=== PATIENT | male | born 1940 | race Caucasian/White ===

== ENCOUNTER 2018-01-28 11:01 | Observation (INO) ==
[2018-01-28 11:59] LABS: Basophils % 0.3 %; Hematocrit 25.4 % (37.5-50.1); Hemoglobin 7.8 g/dL (12.9-16.9); Immature Granulocytes % 1.5 % (0-4); Lymphocytes # 0.9 K/mcL (0.6-4.6); Lymphocytes % 8.6 %; Mean Corpuscular HGB Conc 30.7 g/dL (31.6-35.5); Mean Corpuscular Hemoglobin 23.1 pg (28.0-33.3); Mean Corpuscular Volume 75.4 fL (83.0-100.0); Mean Platelet Volume 11.6 fL (9.4-12.4); Monocytes # 0.8 K/mcL (0.0-1.3); Monocytes % 7.2 %; Neutrophils # 8.6 K/mcL (1.6-8.9); Platelet Count 249 K/mcL (140-400); Red Blood Count 3.37 M/mcL (4.19-5.50); Segmented Neutrophils % 82.4 %
[2018-01-28 12:19] LABS: Alanine Aminotransferase 13 Units/L (7-52); Albumin 4.7 g/dL (3.5-5.7); Albumin/Globulin Ratio 1.7 (1.1-2.2); Alkaline Phosphatase 54 Units/L (34-104); Aspartate Amino Transferase 11 Units/L (13-39); Bilirubin,Total 0.4 mg/dL (0.3-1.0); Blood Urea Nitrogen 18 mg/dL (8-23); Calcium 9.5 mg/dL (8.6-10.3); Carbon Dioxide 26 mEq/L (23-29); Chloride 98 mEq/L (98-107); Globulin 2.7 g/dL (2.4-3.5); Glucose 231 mg/dL (70-105); Osmolality,Calculated 285 (280-300); Potassium 3.6 mEq/L (3.5-5.1); Sodium 133 mEq/L (136-145); Total Protein 7.4 g/dL (6.4-8.9); Troponin I < 0.03 ng/mL (< 0.04)
[2018-01-28 12:59] LABS: Bilirubin,Urine Negative (Negative); Blood,Urine Negative (Negative); Clarity,Urine Clear (Clear); Color,Urine Yellow (Yellow); Glucose,Urine (UA) Normal (Normal); Ketones,Urine Negative (Negative); Leukocyte Esterase,Urine Negative (Negative); Nitrite,Urine Negative (Negative); PH,Urine 7.5 pH Units (5.0-8.0); Protein,Urine Negative (Neg-Trace); Specific Gravity,Urine 1.012 (1.010-1.025); Urobilinogen,Urine Normal (Normal)
[2018-01-28 13:12] LABS: % Iron Saturation 2 % (20-55); BUN/Creatinine Ratio 20 (6-26); Iron 11 mcg/dL (65-175); Transferrin 388 mg/dL (203-362); eGFR For Non-African Americans > 60 (> 60)
[2018-01-28] MEDS ORDERED: Naloxone 0.4 MG/ML INJ IVP PRN (15:04)
--- NOTE | 2018-01-28 15:19 | Internal Med History&Physical ---
Date of Encounter: 01/28/18 Time of Encounter: 15:15 Internal Medicine - H&P: HPI Chief complaint: Anemia Admitted From: Home Plans for Post Hospital Care: Home History of present illness: Mr. Cortes is a 77 year old male with a past medical history of recent anemia who was sent in from Dr. Miles's office today for further evaluation. Patient developed dark bloody stools several weeks ago and had a syncopal episode in the shower; patient was subsequently evaluated and had upper and lower endoscopy after hemoglobin found to be considerably lower than his baseline which appears to be around 13-15. Patient is on aspirin and xarelto for atrial fibrillation these were restarted after upper endoscopy and colonoscopy 2 weeks ago. Patient states that over the last week to 2 weeks he has not noticed any further dark stools or bloody stools. Patient has appointment with Dr. Miles today and hemoglobin found to still be low and was sent in for admission for push endoscopy. Patient denies any chest pain, shortness of breath, nausea, vomiting, diarrhea, abdominal pain. Patient denies any recent travel or sick contacts Past Med Surg Social Fam HX - Past Medical History Medical history: diabetes, glaucoma, hyperlipidemia, hypertension Additional medical history: Basal cell carcinoma, benign essential tumor, Microalbuminuria, squamous cell carcinoma Psychiatric history: no psych history - Past Surgical History Additional surgical history: Hand surgery, Eye trauma (plastic right eye), skin cancer removal - Social History Smoking Status: Never smoker Smokeless Tobacco Status: No Alcohol use: none Drug use: none Internal Medicine - H&P: Meds Amiloride/Hydrochlorothiazide [Amiloride HCl-Hctz 5-50 mg Tab] 1 tab PO DAILY [History] Aspirin [Lo-Dose Aspirin EC] 81 mg PO HS 01/28/18 [History] Bisacodyl [Dulcolax] 10 mg PO DAILY 01/28/18 [History] Glucosamn/Condroitn/C/Mn/[place] [Cvs Glucosamine Chondroitin Tb] 2 tab PO DAILY 01/28/18 [History] Lisinopril [Zestril] 40 mg PO DAILY 01/28/18 [History] Minoxidil [Minoxidil] 10 mg PO BID 01/28/18 [History] Nadide [Nicotinamide Adenine] 1 gm MC DAILY 01/28/18 [History] Rivaroxaban [Xarelto] 20 mg PO 1200 01/28/18 [History] Vit C/E/Zn/Coppr/Lutein/Zeaxan [Preservision Areds 2 Softgel] 1 cap PO DAILY [History] Vitafusion 1 tab PO DAILY 01/28/18 [History] 3 Allergy/AdvReac Type Severity Reaction Status Date / Time codeine AdvReac Vomiting Verified 01/10/18 07:27 All Systems PM: A 10-system review of systems was performed and is negative for pertinent findings except as documented above in the HPI. Review of systems: 10 point review of systems obtained and is otherwise negative other than described in history of present illness - Constitutional Vitals: Temp Pulse Resp BP Pulse Ox 98.6 F 75 16 140/78 100 01/28/18 11:18 01/28/18 14:28 01/28/18 14:28 01/28/18 14:28 01/28/18 14:28 Exam: Constitutional: No acute distress, Alert Psych: AAO x 3 HEENT: NCAT, EOMI Neck: supple, no JVD Cardio: regular rate and rhythm, +s1s2, no murmurs/rubs/gallops, no JVD Resp: clear to ascultation bilaterally, no wheezes/rales/ronchi Abd: soft, non tender/non distended, positive bowel sounds, no gaurding/reboud/ ridgitity Extremities: no clubbing/cyanosis/edema appreciated Neuro: no focal deficits appreciated Lymph: no cervical/supraclavicular adenopahty apprecitated Internal Med - H&P Results - Labs CBC & Chem 7: 01/28/18 11:40 01/28/18 11:40 - Assessment and plan (1) Iron deficiency anemia due to chronic blood loss Current Visit: Yes Status: Acute Assessment and plan: -Patient with recent history of acute drop in hemoglobin from baseline of (13-15 ) to now (7-8) -Syncopal episode prior to last admission -Had negative upper endoscopy and colonoscopy 2 weeks ago -Sent in from Dr. Miles's office for admission for push enteroscopy -We will trend hemoglobin and transfuse less than 7 -Will hold xarelto and aspirin until procedure is done -Iron studies today revealed iron deficiency -We will start by mouth iron, may benefit from IV iron -Npo at midnight (2) Paroxysmal A-fib Current Visit: Yes Status: Acute Assessment and plan: Paroxsmal atrial fibrillation -appears to be NSR on exam -on xarelto, will hold asa and xarelto until push enteroscopy is preformed -pt and family informed of risks of holding anticoagulation and are agreeable (3) HTN (hypertension) Current Visit: Yes Status: Acute Assessment and plan: BP stable -Continue home medications Qualifiers: Hypertension type: essential hypertension Qualified Code(s): I10 - Essential (primary) hypertension (4) HLD (hyperlipidemia) Current Visit: Yes Status: Acute Assessment and plan: diet controlled Qualifiers: Hyperlipidemia type: unspecified Qualified Code(s): E78.5 - Hyperlipidemia , unspecified - Time Spent With Patient Total time spent is greater than 50% in coordination of care (as documented) at patient's floor/unit and/or counseling patient: 25 - 35 minutes
[2018-01-28 15:59] LABS: Mean Corpuscular HGB Conc 30.4 g/dL (31.6-35.5); Mean Corpuscular Hemoglobin 22.4 pg (28.0-33.3); Mean Corpuscular Volume 73.7 fL (83.0-100.0); Mean Platelet Volume 11.7 fL (9.4-12.4); Platelet Count 253 K/mcL (140-400); Red Blood Count 3.12 M/mcL (4.19-5.50); Red Cell Distribution Width 15.1 % (11.5-14.5)
[2018-01-28] MEDS ORDERED: Iron Sucrose Complex 400 MG in 0.9 % Sodium Chloride 250 ML IVPB ONE (16:12)
--- NOTE | 2018-01-28 21:03 | Emergency Department Note ---
Disposition Clinical Impression: Anemia Qualifiers: Anemia type: iron deficiency Iron deficiency anemia type: other iron deficiency Qualified Code(s): D50.8 - Other iron deficiency anemias Disposition: Admitted As Inpatient General Adult HPI - General Chief complaint: ED Recheck/Abnormal Lab/Rx Stated complaint: sent from Dr Miles Time Seen by Provider: 01/28/18 11:07 Source: patient Limitations: no limitations Nursing Notes Reviewed: Yes Vital Signs Reviewed: Yes - History of Present Illness HPI Narrative: 77-year-old male presents with concern for anemia. He apparently has chronic anemia. Previous colonoscopy was negative. He was sent in by Dr. Miles for evaluation of anemia. Dr. Miles did contact me directly and states the patient has no complaints but anemia is worsening. He would like to have a repeat colonoscopy as well as push EGD. General: No acute distress HEENT: Pupils equal and reactive to light, extraoccular muscle movement is normal, TMS are clear bilaterally. Heart: RRR, No murmor rub or gallop Lungs: lungs clear, no wheezing, rales or ronchi. ABD: SNT, no focal areas or tenderness, no guarding or rebound tenderness. Extremities: No cyanosis, clubbing or edema Neuro: CN 2-12 in tact, no focal deficit. strength 5/5. Medical decision making Patient actually has no complaints at this time. Anemia is worse than baseline however hemoglobin is about 7. I would defer transfusion at this time. Patient is not symptomatic. Patient be admitted for push EGD as well as colonoscopy. Pain Scale: 0 - Related Data Home Medications Medication Instructions Recorded Confirmed Amiloride/Hydrochlorothiazide 1 tab PO DAILY 01/28/18 01/28/18 [Amiloride HCl-Hctz 5-50 mg Tab] Aspirin [Lo-Dose Aspirin EC] 81 mg PO HS 01/28/18 01/28/18 Bisacodyl [Dulcolax] 10 mg PO DAILY 01/28/18 01/28/18 Glucosamn/Condroitn/C/Mn/[place] 2 tab PO DAILY 01/28/18 01/28/18 [Cvs Glucosamine Chondroitin Tb] Lisinopril [Zestril] 40 mg PO DAILY 01/28/18 01/28/18 Minoxidil [Minoxidil] 10 mg PO BID 01/28/18 01/28/18 Nadide [Nicotinamide Adenine] 1 gm MC DAILY 01/28/18 01/28/18 Rivaroxaban [Xarelto] 20 mg PO 1200 01/28/18 01/28/18 Vit C/E/Zn/Coppr/Lutein/Zeaxan 1 cap PO DAILY 01/28/18 01/28/18 [Preservision Areds 2 Softgel] Vitafusion 1 tab PO DAILY 01/28/18 01/28/18 Allergies Allergy/AdvReac Type Severity Reaction Status Date / Time codeine AdvReac Vomiting Verified 01/10/18 07:27 All systems ED: reviewed and negative except as stated. Past Medical History - Past Medical History Medical history: Reports: diabetes, glaucoma, hyperlipidemia, hypertension Psychiatric history: Reports: no psych history - Social History Smoking Status: Never smoker Smokeless Tobacco Status: No Alcohol use: Reports: none Drug use: Reports: none Physical Exam - General Limitations: no limitations General appearance: alert Course Vital Signs Temperature 98.6 F 01/28/18 11:06 Pulse Rate 96 01/28/18 11:06 Respiratory Rate 16 01/28/18 11:06 Blood Pressure 178/75 01/28/18 11:06 O2 Sat by Pulse Oximetry 99 01/28/18 11:06 Temperature 98.9 F 01/28/18 19:24 Pulse Rate 83 01/28/18 19:24 Respiratory Rate 16 01/28/18 19:24 Blood Pressure 162/82 01/28/18 19:24 O2 Sat by Pulse Oximetry 98 01/28/18 19:24 Oxygen Delivery Oxygen Delivery Room Air Medical Decision Making - Lab Data Result diagrams: 01/28/18 15:33 01/28/18 11:40 Lab Results 01/28/18 01/28/18 01/28/18 Range/Units 11:40 11:40 11:40 WBC 10.4 (4.3-11.1) K/mcL RBC 3.37 L (4.19-5.50) M/mcL Hgb 7.8 L (12.9-16.9) g/dL Hct 25.4 L (37.5-50.1) % MCV 75.4 L (83.0-100.0) fL MCH 23.1 L (28.0-33.3) pg MCHC 30.7 L (31.6-35.5) g/dL RDW 15.0 H (11.5-14.5) % Plt Count 249 (140-400) K/mcL MPV 11.6 (9.4-12.4) fL Immature Gran % 1.5 (0-4) % Seg Neutrophils % 82.4 % Lymphocytes % 8.6 % Monocytes % 7.2 % Eosinophils % 0.0 % Basophils % 0.3 % Neutrophils # 8.6 (1.6-8.9) K/mcL Lymphocytes # 0.9 (0.6-4.6) K/mcL Monocytes # 0.8 (0.0-1.3) K/mcL Eosinophils # 0.0 (0.0-0.6) K/mcL Basophils # 0.0 (0.0-0.2) K/mcL Sodium 133 L (136-145) mEq/L Potassium 3.6 (3.5-5.1) mEq/L Chloride 98 (98-107) mEq/L Carbon Dioxide 26 (23-29) mEq/L BUN 18 (8-23) mg/dL Creatinine 0.92 (0.70-1.30) mg/dL Est GFR ( Amer) > 60 (> 60) Est GFR (Non-Af Amer) > 60 (> 60) BUN/Creatinine Ratio 20 (6-26) Glucose 231 H (70-105) mg/dL Calculated Osmolality 285 (280-300) Calcium 9.5 (8.6-10.3) mg/dL Iron 11 L (65-175) mcg/dL % Saturation 2 L (20-55) % Transferrin 388 H (203-362) mg/dL Total Bilirubin 0.4 (0.3-1.0) mg/dL AST 11 L (13-39) Units/L ALT 13 (7-52) Units/L Alkaline Phosphatase 54 (34-104) Units/L Troponin I < 0.03 (< 0.04) ng/mL Serum Total Protein 7.4 (6.4-8.9) g/dL Albumin 4.7 (3.5-5.7) g/dL Globulin 2.7 (2.4-3.5) g/dL Albumin/Globulin Ratio 1.7 (1.1-2.2) Urine Color (Yellow) Urine Clarity (Clear) Urine pH (5.0-8.0) pH Units Ur Specific [place] (1.010-1.025) Urine Protein (Neg-Trace) mg/dL Urine Glucose (UA) (Normal) mg/dL Urine Ketones (Negative) mg/dL Urine Blood (Negative) Urine Nitrite (Negative) Urine Bilirubin (Negative) Urine Urobilinogen (Normal) mg/dL Ur Leukocyte Esterase (Negative) Ur Culture Indicated? (NO) Blood Type A POSITIVE Antibody Screen NEGATIVE 01/28/18 Range/Units 12:48 WBC (4.3-11.1) K/mcL RBC (4.19-5.50) M/mcL Hgb (12.9-16.9) g/dL Hct (37.5-50.1) % MCV (83.0-100.0) fL MCH (28.0-33.3) pg MCHC (31.6-35.5) g/dL RDW (11.5-14.5) % Plt Count (140-400) K/mcL MPV (9.4-12.4) fL Immature Gran % (0-4) % Seg Neutrophils % % Lymphocytes % % Monocytes % % Eosinophils % % Basophils % % Neutrophils # (1.6-8.9) K/mcL Lymphocytes # (0.6-4.6) K/mcL Monocytes # (0.0-1.3) K/mcL Eosinophils # (0.0-0.6) K/mcL Basophils # (0.0-0.2) K/mcL Sodium (136-145) mEq/L Potassium (3.5-5.1) mEq/L Chloride (98-107) mEq/L Carbon Dioxide (23-29) mEq/L BUN (8-23) mg/dL Creatinine (0.70-1.30) mg/dL Est GFR ( Amer) (> 60) Est GFR (Non-Af Amer) (> 60) BUN/Creatinine Ratio (6-26) Glucose (70-105) mg/dL Calculated Osmolality (280-300) Calcium (8.6-10.3) mg/dL Iron (65-175) mcg/dL % Saturation (20-55) % Transferrin (203-362) mg/dL Total Bilirubin (0.3-1.0) mg/dL AST (13-39) Units/L ALT (7-52) Units/L Alkaline Phosphatase (34-104) Units/L Troponin I (< 0.04) ng/mL Serum Total Protein (6.4-8.9) g/dL Albumin (3.5-5.7) g/dL Globulin (2.4-3.5) g/dL Albumin/Globulin Ratio (1.1-2.2) Urine Color Yellow (Yellow) Urine Clarity Clear (Clear) Urine pH 7.5 (5.0-8.0) pH Units Ur Specific [place] 1.012 (1.010-1.025) Urine Protein Negative (Neg-Trace) mg/dL Urine Glucose (UA) Normal (Normal) mg/dL Urine Ketones Negative (Negative) mg/dL Urine Blood Negative (Negative) Urine Nitrite Negative (Negative) Urine Bilirubin Negative (Negative) Urine Urobilinogen Normal (Normal) mg/dL Ur Leukocyte Esterase Negative (Negative) Ur Culture Indicated? NO (NO) Blood Type Antibody Screen
[2018-01-28] MEDS: *HR* Heparin 5,000 UNIT/ML VIAL SQ SCH (21:43)
[2018-01-29] MEDS: *HR* Heparin 5,000 UNIT/ML VIAL SQ SCH ×2 (04:52→18:48)
[2018-01-29 05:23] LABS: Basophils % 0.1 %; Eosinophils # 0.1 K/mcL (0.0-0.6); Eosinophils % 0.7 %; Hematocrit 22.4 % (37.5-50.1); Immature Granulocytes % 0.7 % (0-4); Immature Reticulocyte % 34.3 % (11.0-38.0); Lymphocytes # 1.6 K/mcL (0.6-4.6); Mean Corpuscular HGB Conc 31.3 g/dL (31.6-35.5); Mean Corpuscular Hemoglobin 23.2 pg (28.0-33.3); Mean Corpuscular Volume 74.2 fL (83.0-100.0); Mean Platelet Volume 11.3 fL (9.4-12.4); Monocytes % 10.2 %; Neutrophils # 6.7 K/mcL (1.6-8.9); Platelet Count 217 K/mcL (140-400); Red Blood Count 3.02 M/mcL (4.19-5.50); Red Cell Distribution Width 15.2 % (11.5-14.5); Retculocyte # 0.08 M/mcL (0.05-0.10); Reticulocyte % 2.7 % (1.6-2.8); Segmented Neutrophils % 71.3 %
[2018-01-29 05:44] LABS: BUN/Creatinine Ratio 18 (6-26); Blood Urea Nitrogen 15 mg/dL (8-23); Calcium 8.8 mg/dL (8.6-10.3); Carbon Dioxide 26 mEq/L (23-29); Chloride 100 mEq/L (98-107); Glucose 128 mg/dL (70-105); Osmolality,Calculated 278 (280-300); Potassium 3.3 mEq/L (3.5-5.1); Sodium 133 mEq/L (136-145); eGFR For Non-African Americans > 60 (> 60)
[2018-01-29] MEDS: Lisinopril 20 MG TABLET PO SCH (07:57)
--- NOTE | 2018-01-29 08:15 | Electrocardiograph Report ---
[place] [id number] Test Date: 2018-01-28 Pat Name: Chidi Cortes Department: [id number] Room: 3A21 Gender: M [employer]: : [id number] Requested By: Ronan Lorenzana Order Number: [id number] Reading MD: Justice Valles Measurements Intervals [place] Rate: 90 P: CO: QRS: 52 QRSD: 97 T: 16 QT: 378 QTc: 463 Interpretive Statements Atrial fibrillation Nonspecific ST-T changes Electronically Signed On 01-29-2018 8:14:22 EDT by Justice Valles
[2018-01-29] MEDS ORDERED: *HR* Propofol 200 MG/20 ML VIAL IVP ONE (12:27)
[2018-01-29] MEDS ORDERED: Lidocaine -MPF 2% 2 ML VIAL ONE (12:27)
--- NOTE | 2018-01-29 13:06 | Gastroenterology Consult Note ---
<Chris Keith Lissy - Last Filed: 01/29/18 13:04> Date of Encounter: 01/29/18 Time of Encounter: 11:00 - Assessment and plan (1) ODALYS (iron deficiency anemia) Current Visit: Yes Status: Acute Assessment and plan: He had an EGD and colonoscopy with Dr. Alford 01/10/2018 and source of bleeding was not found. Symptoms began approximately 3 weeks ago melena and bloody stool. Patient is on aspirin and xarelto for atrial fibrillation these were restarted after upper endoscopy and colonoscopy 2 weeks ago. Baseline Hgb appears to be between 13-15, and recently Hgb 7-8. Patient states that over the last week to 2 weeks he has not noticed any further dark stools or bloody stools. Plan for push enteroscopy today. Keep NPO for scope. If negative, consider capsule endoscopy as outpatient vs repeat colonoscopy. Iron 11, gave one dose IV iron yesterday, repeat in 2 weeks. Qualifiers: Iron deficiency anemia type: unspecified iron deficiency Qualified Code(s) : D50.9 - Iron deficiency anemia, unspecified - Time Spent With Patient Total time spent is greater than 50% in coordination of care (as documented) at patient's floor/unit and/or counseling patient: GI History of Present Illness - Data of Consult Patient: known to practice within the last 3 years Consult date: 01/29/18 Requesting Physician: Daniel Pulliam DO - Consult Narrative Reason for consult: Anemia History of present illness: Mr. Cortes is a 77 year old male with PMHx of DM, HLD, HTN, glaucoma who was sent to the ED by Dr. Miles for further evaluation of his anemia. He had an EGD and colonoscopy with Dr. Alford 01/10/2018 and source of bleeding was not found. Symptoms began approximately 3 weeks ago melena and bloody stool. Patient is on aspirin and xarelto for atrial fibrillation these were restarted after upper endoscopy and colonoscopy 2 weeks ago. Baseline Hgb appears to be between 13-15 , and recently Hgb 7-8. Patient states that over the last week to 2 weeks he has not noticed any further dark stools or bloody stools. Patient denies any fever, chills, chest pain, shortness of breath, abdominal pain, nausea, vomiting , diarrhea, constipation. Procedures: Colonoscopy 01/10/2018 Dr. Alford: Diverticulosis otherwise normal. EGD 01/10/2018 Dr. Alford: Normal NSAIDs: ASA Anticoagulation: Xarelto Past Med Surg Social Fam HX - Past Medical History Medical history: diabetes, glaucoma, hyperlipidemia, hypertension Additional medical history: Basal cell carcinoma, benign essential tumor, Microalbuminuria, squamous cell carcinoma Psychiatric history: no psych history - Past Surgical History Additional surgical history: Hand surgery, Eye trauma (plastic right eye), skin cancer removal - Social History Smoking Status: Never smoker Smokeless Tobacco Status: No Alcohol use: none Drug use: none - Family History Mother Hx Family Cancer: Yes Father Hx Family Cardiac Disorders: Yes - Gastrointestinal Gastrointestinal: Present: as per HPI - Constitutional Constitutional: as per HPI - EENT Eyes: as per HPI Ears: Present: as per HPI Nose, mouth and throat: Present: as per HPI - Cardiovascular Cardiovascular ROS: Present: as per HPI - Respiratory Respiratory IM: Present: as per HPI - Genitourinary Genitourinary: Absent: change in color, Urinary frequency - Neurological ROS Neurological GI: Present: as per HPI - Hematologic/Lymphatic Hematologic/Lymphatic pediatric: Present: as per HPI - Musculoskeletal Musculoskeletal ROS GI: Present: as per HPI - Integumentary Integumentary GI: Present: as per HPI - Psychiatric ROS Psychiatric GI: Present: as per HPI - Endocrine Endocrine IM: Present: as per HPI - Constitutional Vitals: Temp Pulse Resp BP Pulse Ox 98.0 F 83 16 162/79 99 01/29/18 07:00 01/29/18 07:00 01/29/18 07:00 01/29/18 07:00 01/29/18 07:00 General appearance: Present: cooperative, A&O X 3, no acute distress, answers questions appropriately - Head Head exam: Present: atraumatic, normocephalic - Eye Eye exam: Present: normal appearance, sclera anicteric - ENT ENT exam: Present: mucous membranes dry - Neck Neck exam general surgery: Present: normal inspection, trachea midline - Respiratory Respiratory exam: Present: CTAB. Absent: rales, rhonchi - Cardiovascular Cardiovascular exam: Present: RRR, +S1, +S2 - GI/Abdominal GI/Abdominal exam: Present: soft, no peritoneal signs. Absent: distended, firm , guarding, tenderness - Rectal Rectal exam: Present: deferred - Extremities Exam Extremities exam: Present: warm - Neurological Exam Neurological exam: Present: no focal deficits - Psychiatric Psychiatric exam: Present: normal affect, normal mood - Skin Skin exam: Present: dry, intact, normal color, warm Results - Labs CBC & Chem 7: 01/29/18 04:00 01/29/18 04:55 Labs: Last Result Calcium 8.8 mg/dL (8.6-10.3) 01/29/18 04:55 Iron 11 mcg/dL (65-175) L 01/28/18 11:40 % Saturation 2 % (20-55) L 01/28/18 11:40 Transferrin 388 mg/dL (203-362) H 01/28/18 11:40 Troponin I < 0.03 ng/mL (< 0.04) 01/28/18 11:40 Entire Visit Hgb 7.0 g/dL (12.9-16.9) L 01/29/18 04:00 Hct 22.4 % (37.5-50.1) L 01/29/18 04:00 Total Bilirubin 0.4 mg/dL (0.3-1.0) 01/28/18 11:40 AST 11 Units/L (13-39) L 01/28/18 11:40 ALT 13 Units/L (7-52) 01/28/18 11:40 Consult Discharge Plan - Plan Referrals: Meme Steele MD [Primary Care Provider] - <GennyJuan - Last Filed: 01/29/18 18:18> Date of Encounter: 01/29/18 Time of Encounter: 13:00 - Time Spent With Patient Total time spent is greater than 50% in coordination of care (as documented) at patient's floor/unit and/or counseling patient: GI History of Present Illness - Data of Consult Requesting Physician: Daniel Pulliam DO - Consult Narrative History of present illness: Mr. Cortes is a 77 year old male - Constitutional Vitals: Temp Pulse Resp BP Pulse Ox 97.5 F L 86 16 142/69 94 01/29/18 16:12 01/29/18 16:12 01/29/18 16:12 01/29/18 16:12 01/29/18 15:57 Results - Labs CBC & Chem 7: 01/29/18 04:00 01/29/18 04:55 Labs: Last Result Calcium 8.8 mg/dL (8.6-10.3) 01/29/18 04:55 Iron 11 mcg/dL (65-175) L 01/28/18 11:40 % Saturation 2 % (20-55) L 01/28/18 11:40 Transferrin 388 mg/dL (203-362) H 01/28/18 11:40 Troponin I < 0.03 ng/mL (< 0.04) 01/28/18 11:40 Entire Visit Hgb 7.0 g/dL (12.9-16.9) L 01/29/18 04:00 Hct 22.4 % (37.5-50.1) L 01/29/18 04:00 Total Bilirubin 0.4 mg/dL (0.3-1.0) 01/28/18 11:40 AST 11 Units/L (13-39) L 01/28/18 11:40 ALT 13 Units/L (7-52) 01/28/18 11:40 - Attending Attestation I have personally performed a face to face evaluation on this patient. I have reviewed and agree with the care plan. History and Exam by me shows: Patient seen. Denies any abdominal pain denies any blood in the stool. On examination abdomen is soft. This Assessment: Patient with severe iron deficiency anemia but there is no overt GI bleeding although does have a history of black stool. Currently stools are brown. Recommendation: Enteroscopy and if negative then colonoscopy and if negative then capsule endoscopy as an outpatient. Meanwhile we will transfuse patient 2 units of blood and also we will give him IV iron
--- NOTE | 2018-01-29 13:42 | Anesthesia Evaluation PreOp ---
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 Any Significant HX Other Medical History: Diabetes Type II Anesthesia History: No Prior Anesthetic Complications, Past Anesthesia (hand, eye, skin ca) Alcohol Use: none Drug use: none Medications and Allergies Amiloride/Hydrochlorothiazide [Amiloride HCl-Hctz 5-50 mg Tab] 1 tab PO DAILY [History] Aspirin [Lo-Dose Aspirin EC] 81 mg PO HS 01/28/18 [History] Bisacodyl [Dulcolax] 10 mg PO DAILY 01/28/18 [History] Glucosamn/Condroitn/C/Mn/[place] [Cvs Glucosamine Chondroitin Tb] 2 tab PO DAILY 01/28/18 [History] Lisinopril [Zestril] 40 mg PO DAILY 01/28/18 [History] Minoxidil [Minoxidil] 10 mg PO BID 01/28/18 [History] Nadide [Nicotinamide Adenine] 1 gm MC DAILY 01/28/18 [History] Rivaroxaban [Xarelto] 20 mg PO 1200 01/28/18 [History] Vit C/E/Zn/Coppr/Lutein/Zeaxan [Preservision Areds 2 Softgel] 1 cap PO DAILY [History] Vitafusion 1 tab PO DAILY 01/28/18 [History] 3 Allergy/AdvReac Type Severity Reaction Status Date / Time codeine AdvReac Vomiting Verified 01/10/18 07:27 - Meds/Allergy Pre-op Review Medications Reviewed: Yes Allergies Reviewed: Yes Beta Blockers on Current Med List: No Anesthesia Results - Labs 01/29/18 04:00 01/29/18 04:55 - Imaging EKG: report reviewed (afib) Additional studies: 2016 Impressions: Normal LV chamber size, wall thickness, and systolic function. LVEF 65%. Indeterminate diastolic function due to atrial fibrillation. Normal right ventricular structure and function. Mildly dilated left atrium. Mild mitral regurgitation. Unable to estimate RVSP due to lack of TR jet. Anesthesia Exam Vital Signs/O2 Sat, Most Current Temp Pulse Resp BP Pulse Ox 98.0 F 83 16 162/79 99 01/29/18 07:00 01/29/18 07:00 01/29/18 07:00 01/29/18 07:00 01/29/18 07:00 Weight: 99kg NPO (# of Hours): >8 - HEENT Pupil (Motor): Pupils equal, EOMI Mallampati: III Teeth: Poor dentition Oral Opening: Greater than 3 - ROLLS MILL OPERATOR LOC: Oriented ROLLS MILL OPERATOR Motor: Normal RUE, Normal LUE, Normal RLE, Normal LLE, Normal Face ROLLS MILL OPERATOR Sensory: Normal: RUE, LUE, RLE, LLE, Face - Cardiac Rhythm: Irregular - Pulmonary Breath Sounds: bilateral Clear Respiratory Effort: Symmetrical Anesthesia Assess/Plan ASA Score: 3 Modified [place]quin Scale for Level of Consciousness: Cooperative, oriented, and tranquil Anesthetic Plan: MAC Monitoring Plan: Standard Monitors Recovery Plan: PACU
--- NOTE | 2018-01-29 14:06 | Anesthesia Evaluation Post Op ---
Date of Encounter: 01/29/18 Time of Encounter: 14:05 - Vital Signs Vital Signs: Vital Signs/O2 Sat, Most Current Temp Pulse Resp BP Pulse Ox 98.5 F 82 16 183/81 94 01/29/18 13:41 01/29/18 13:41 01/29/18 13:41 01/29/18 13:41 01/29/18 13:41 - Lungs Lungs: Clear Ascult./Percussion - Airway Airway: Non-obstructed - Cardiovascular Irregular Rate - Mental Status Mental Status: Alert & Oriented, Answers Appropriately - Pain Pain Scale: 0 Pain Scale used: Numeric (1 - 10) - Nausea Vomiting Nausea Vomiting: Not Present - Hydration Hydration: NPO, Has not voided - Discharge PostOp Status: Transfer Patient to floor
--- NOTE | 2018-01-29 14:59 | Internal Med Progress Note ---
Hospitalist Progress Note - Encounter Date of Encounter: 01/29/18 Time of Encounter: 14:56 - Subjective Interval History: Patient seen and examined at bedside. Patient no acute overnight events. Patient hemoglobin has been stable at 7.02. Per RN Patient had a push enteroscopy today with findings of duodenitis and gastritis; no active bleeding was found and biopsies were taken. RN advised myself the GI wanted to units of blood to be transfused. Patient was evaluated by myself prior to endoscopy, patient denied any chest pain, shortness of breath, nausea, vomiting, diarrhea. Patient denies any melanotic stools overnight. Aspirin and xarelto continue to be held - Exam Vitals: Temp Pulse Resp BP Pulse Ox 98.5 F 82 16 183/81 94 01/29/18 13:41 01/29/18 13:41 01/29/18 13:41 01/29/18 13:41 01/29/18 13:41 Exam: Constitutional: No acute distress, Alert Psych: AAO x 3 Cardio: regular rate and rhythm, +s1s2, no murmurs/rubs/gallops, no JVD Resp: clear to ascultation bilaterally, no wheezes/rales/ronchi Abd: soft, non tender/non distended, positive bowel sounds, no gaurding/reboud/ ridgitity Extremities: no clubbing/cyanosis/edema appreciated - Assessment and Plan (1) Iron deficiency anemia due to chronic blood loss Current Visit: Yes Status: Acute Assessment and Plan: -Patient with recent history of acute drop in hemoglobin from baseline of (13-15 ) to now (7-8) -Syncopal episode prior to last admission -Had negative upper endoscopy and colonoscopy 2 weeks ago -Sent in from Dr. Miles's office for admission for push enteroscopy -Will hold xarelto and aspirin until procedure is done -Iron studies today revealed iron deficiency; recieved IV iron yesterday and will have 2nd dose as outpt per GI -Continue PO iron -Push enteroscopy revealed findings of gastritis and duodenitis with no active bleeding and biopsies taken per RN -RN informed myself that GI would like 2 units PRBCs transfused; this was ordered -Repeat CBC in AM; earlier if clinically indicated -We will likely need outpatient capsule endoscopy and may need repeat colonoscopy as outpatient -If hemoglobin stable we will likely discharge tomorrow (2) Paroxysmal A-fib Current Visit: Yes Status: Acute Assessment and Plan: Paroxsmal atrial fibrillation -appears to be NSR on exam -continue to hold asa and xarelto in light of decreasing hemoglobin requiring tranfusion today -pt and family informed of risks of holding anticoagulation and are agreeable -will discuss with family reguarding conintuation of these drugs prior to discharge (3) HTN (hypertension) Current Visit: Yes Status: Acute Assessment and Plan: BP stable -Continue home medications (4) HLD (hyperlipidemia) Current Visit: Yes Status: Acute Assessment and Plan: diet controlled DVT Prophylaxis: sub q heparin - Time Spent with Patient Total time spent is greater than 50% in coordination of care (as documented) at patient's floor/unit and/or counseling patient: less than 15 minutes Plan of Care Discussed with: patient Internal Medicine: Result - Labs CBC & Chem 7: 01/29/18 04:00 01/29/18 04:55 Labs: Short CBC 01/28/18 01/29/18 Range/Units 15:33 04:00 WBC 10.7 9.4 (4.3-11.1) K/mcL Hgb 7.0 L 7.0 L (12.9-16.9) g/dL Hct 23.0 L 22.4 L (37.5-50.1) % Plt Count 253 217 (140-400) K/mcL Neutrophils # 6.7 (1.6-8.9) K/mcL BMP 01/29/18 04:55 Sodium 133 L Potassium 3.3 L Chloride 100 Carbon Dioxide 26 BUN 15 Creatinine 0.85 Glucose 128 H Calcium 8.8 Consult Discharge Plan - Plan Referrals: Meme Steele MD [Primary Care Provider] - (3) HTN (hypertension) Qualifiers: Hypertension type: essential hypertension Qualified Code(s): I10 - Essential (primary) hypertension (4) HLD (hyperlipidemia) Qualifiers: Hyperlipidemia type: unspecified Qualified Code(s): E78.5 - Hyperlipidemia, unspecified
[2018-01-29] MEDS ORDERED: 0.9 % Sodium Chloride 250 ML ONE ×2 (15:27→18:55)
[2018-01-29] MEDS ORDERED: SODIUM CHLORIDE/NAHCO3/KCL/PEG 4,000 ML SOLN.RECON PO ONE ×2 (17:00→18:18)
[2018-01-30 04:40] LABS: Basophils # 0.1 K/mcL (0.0-0.2); Basophils % 0.5 %; Eosinophils # 0.2 K/mcL (0.0-0.6); Eosinophils % 2.4 %; Hematocrit 25.9 % (37.5-50.1); Hemoglobin 8.1 g/dL (12.9-16.9); Immature Granulocytes % 1.1 % (0-4); Lymphocytes % 19.7 %; Mean Corpuscular HGB Conc 31.3 g/dL (31.6-35.5); Mean Corpuscular Hemoglobin 23.3 pg (28.0-33.3); Mean Corpuscular Volume 74.6 fL (83.0-100.0); Mean Platelet Volume 11.5 fL (9.4-12.4); Monocytes % 10.1 %; Neutrophils # 6.7 K/mcL (1.6-8.9); Nucleated Red Blood Cells 0.4 /100 WBC (0); Platelet Count 234 K/mcL (140-400); Red Blood Count 3.47 M/mcL (4.19-5.50); Red Cell Distribution Width 15.6 % (11.5-14.5); Segmented Neutrophils % 66.2 %
[2018-01-30 04:57] LABS: BUN/Creatinine Ratio 14 (6-26); Blood Urea Nitrogen 11 mg/dL (8-23); Calcium 8.7 mg/dL (8.6-10.3); Carbon Dioxide 24 mEq/L (23-29); Chloride 101 mEq/L (98-107); Glucose 109 mg/dL (70-105); Osmolality,Calculated 276 (280-300); Potassium 3.2 mEq/L (3.5-5.1); Sodium 133 mEq/L (136-145); eGFR For Non-African Americans > 60 (> 60)
[2018-01-30] MEDS: *HR* Heparin 5,000 UNIT/ML VIAL SQ SCH ×2 (07:43→19:34)
[2018-01-30] MEDS: Lisinopril 20 MG TABLET PO SCH (09:58)
--- NOTE | 2018-01-30 12:38 | Internal Med Progress Note ---
Hospitalist Progress Note - Encounter Date of Encounter: 01/30/18 Time of Encounter: 12:35 - Subjective Interval History: Patient seen and examined at bedside. Patient no acute overnight events. Patient hemoglobin has been stable at 7.02 yesterday and had push enteroscopy which did not reveal source of blood loss. Transfused 2 units and Hgb 8.1 today. Pt denies any cp,sob,n/v. Denies hematochezia and melena. Patient had bowel prep last night and tolerated without issue for colonoscopy today. Pt had some confusion last night and this am that is resolved; likely delerium. Aspirin and xarelto continue to be held; pt and aware of risks and need to hold currently. - Exam Vitals: Temp Pulse Resp BP Pulse Ox 98.5 F 86 15 155/73 98 01/30/18 11:21 01/30/18 11:21 01/30/18 11:21 01/30/18 11:21 01/30/18 11:21 Exam: Constitutional: No acute distress, Alert Psych: AAO x 3 Cardio: Irregularly irregular with controlled rate Resp: clear to ascultation bilaterally Abd: soft, non tender/non distended Extremities: no clubbing/cyanosis/edema appreciated - Assessment and Plan (1) Iron deficiency anemia due to chronic blood loss Current Visit: Yes Status: Acute Assessment and Plan: -Patient with recent history of acute drop in hemoglobin from baseline of (13-15 ) to now (7-8) -Syncopal episode prior to last admission -Had negative upper endoscopy and colonoscopy 2 weeks ago -Sent in from Dr. Miles's office for admission for push enteroscopy -Will hold xarelto and aspirin until procedure is done -Iron studies today revealed iron deficiency; recieved IV iron yesterday and will have 2nd dose as outpt per GI -Continue PO iron -Push enteroscopy revealed findings of gastritis and duodenitis with no active bleeding and biopsies taken per RN -RN informed myself that GI would like 2 units PRBCs transfused; this was ordered -Repeat CBC in AM; earlier if clinically indicated -colonoscopy today; may need caspule endoscopy if negative -Pt recieved 2 units PRBCs yesterday with only 1gram increase from 7.0 to 8.1 (2) Paroxysmal A-fib Current Visit: Yes Status: Acute Assessment and Plan: Paroxsmal atrial fibrillation -rate controlled -continue to hold asa and xarelto in light of decreasing hemoglobin requiring tranfusion -pt and family informed of risks of holding anticoagulation and are agreeable -will discuss with family reguarding conintuation of these drugs prior to discharge (3) HTN (hypertension) Current Visit: Yes Status: Acute Assessment and Plan: BP stable -Continue home medications (4) HLD (hyperlipidemia) Current Visit: Yes Status: Acute Assessment and Plan: diet controlled (5) Hypokalemia Current Visit: Yes Status: Acute Assessment and Plan: Likely 2/2 gi losses due to bowel prep replacement ordered DVT Prophylaxis: sub q heparin - Time Spent with Patient Total time spent is greater than 50% in coordination of care (as documented) at patient's floor/unit and/or counseling patient: less than 15 minutes Plan of Care Discussed with: family Internal Medicine: Result - Labs CBC & Chem 7: 01/30/18 04:10 01/30/18 04:10 Labs: Short CBC 01/30/18 Range/Units 04:10 WBC 10.1 (4.3-11.1) K/mcL Hgb 8.1 L (12.9-16.9) g/dL Hct 25.9 L (37.5-50.1) % Plt Count 234 (140-400) K/mcL Neutrophils # 6.7 (1.6-8.9) K/mcL BMP 01/30/18 04:10 Sodium 133 L Potassium 3.2 L Chloride 101 Carbon Dioxide 24 BUN 11 Creatinine 0.80 Glucose 109 H Calcium 8.7 Consult Discharge Plan - Plan Referrals: Meme Steele MD [Primary Care Provider] - 02/10/18 10:00 am (3) HTN (hypertension) Qualifiers: Hypertension type: essential hypertension Qualified Code(s): I10 - Essential (primary) hypertension (4) HLD (hyperlipidemia) Qualifiers: Hyperlipidemia type: unspecified Qualified Code(s): E78.5 - Hyperlipidemia, unspecified
[2018-01-30] MEDS ORDERED: *HR* Midazolam HCl 5 MG/5 ML VIAL IVP ONE ×2 (16:46→17:54)
[2018-01-30] MEDS ORDERED: *HR* FentaNYL (PF) 100 MCG/2 ML VIAL ONE (16:46)
[2018-01-30] MEDS ORDERED: Simethicone 40 MG/0.6 ML MLS IR ONE (17:54)
[2018-01-30] MEDS ORDERED: *HR* FentaNYL (PF) 100 MCG/2 ML VIAL IVP ONE (17:54)
[2018-01-30 18:15] VITALS: BP 111/56
--- NOTE | 2018-01-30 18:35 | Discharge Summary ---
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 Patient resume aspirin on Wednesday 01/31 and resume Xarelto on Saturday 02/03. Discharge hemoglobin 8.1 Orders not resulted at time of discharge: Pending orders 01/29/18 14:01 Surgical Pathology [PTH] Routine 01/31/18 04:00 Basic Metabolic Panel AM 0400 Complete Blood Count [HEME] AM 0400 Date of Encounter: 01/30/18 Time of Encounter: 18:32 - Discharge Diagnosis (1) Iron deficiency anemia due to chronic blood loss Priority: Primary Status: Acute (2) Paroxysmal A-fib Priority: Secondary Status: Acute (3) HTN (hypertension) Priority: Secondary Status: Acute Qualifiers: Hypertension type: essential hypertension Qualified Code(s): I10 - Essential (primary) hypertension (4) HLD (hyperlipidemia) Priority: Secondary Status: Acute Qualifiers: Hyperlipidemia type: unspecified Qualified Code(s): E78.5 - Hyperlipidemia , unspecified (5) Hypokalemia Priority: Secondary Status: Acute Hospital course: Mr. Cortes is a 77 year old male admitted for workup for blood loss anemia with iron deficiency. Patient was followed by GI and given IV iron. Patient had push enteroscopy which was unremarkable with the exception of gastritis and duodenitis. Biopsies were taken. 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 Patient will be discharged with a hemoglobin of 8.1 that is asymptomatic. Patient to resume Xarelto on Saturday 02/03 and resume aspirin on Wednesday 01/31. Family and patient were explained this and are agreeable to discharge. Discharge discussed with: patient, family, nurse - Time Spent with Patient Total time spent providing and/or coordinating discharge services: Greater than 30 minutes - Discharge Medications Prescriptions: Ferrous Sulfate 325 mg PO BIDWM 30 Days #60 tablet Home Medications: Amiloride/Hydrochlorothiazide [Amiloride HCl-Hctz 5-50 mg Tab] 1 tab PO DAILY [History] Bisacodyl [Dulcolax] 10 mg PO DAILY 01/28/18 [History] Glucosamn/[place]n/C/Mn/[place] [Cvs Glucosamine Chondroitin Tb] 2 tab PO DAILY 01/28/18 [History] Lisinopril [Zestril] 40 mg PO DAILY 01/28/18 [History] Minoxidil 10 mg PO BID 01/28/18 [History] Nadide [Nicotinamide Adenine] 1 gm MC DAILY 01/28/18 [History] Vit C/E/Zn/Coppr/Lutein/Zeaxan [Preservision Areds 2 Softgel] 1 cap PO DAILY [History] Vitafusion 1 tab PO DAILY 01/28/18 [History] Aspirin [Lo-Dose Aspirin EC] 81 mg PO HS #0 01/30/18 [Rx] Ferrous Sulfate 325 mg PO BIDWM 30 Days #60 tablet 01/30/18 [Rx] Allergies/Adverse Reactions: 3 Allergy/AdvReac Type Severity Reaction Status Date / Time codeine AdvReac Vomiting Verified 01/10/18 07:27 Date of admission: 01/28/18 13:53 Primary care physician: Meme Steele MD Consults: 01/28/18 14:42 Consult to Invasive Line Access Team [CONS] Routine Reason for Consult: poor access Line Type: EPIV 01/28/18 15:06 Consult to Physician [CONS] Routine Consulting Provider: Larry Miles Reason for Consult: Anemia, push enteroscopy Call Completed: No - Constitutional Vitals: Temp Pulse Resp BP Pulse Ox 98.5 F 69 16 111/56 98 01/30/18 16:52 01/30/18 18:15 01/30/18 18:15 01/30/18 18:15 01/30/18 18:15 Exam: Constitutional: No acute distress, Alert Psych: AAO x 3 Cardio: Irregularly irregular with controlled rate Resp: clear to ascultation bilaterally Abd: soft, non tender/non distended Extremities: no clubbing/cyanosis/edema appreciated - Patient Status Disposition: Home, Self-Care Condition: Good Functional capacity at discharge: independent ambulation Overall status at discharge: patient is back to baseline - Discharge Instructions Follow Up With: Meme Steele MD [Primary Care Provider] - 02/10/18 10:00 am Forms: ED Satisfaction Letter - Diet and Activity Activity: increase activity as tolerated Diet: advance to your usual diet
== END 2018-01-30 20:37 | disposition home or self-care (01) ==
LOC: 3ANU 11:01 → EMEROOARM 11:01 → SUATTDRO 13:53 → 3ANU 15:00
PROVIDERS: ADMIT Student in an Organized Health Care Education/Training Program; ATTEND Internal Medicine
PROC: ENDOCCB (2018-01-30 14:30)